=== PATIENT | male | born 1965 | race Caucasian/White ===

== ENCOUNTER 2019-05-17 20:31 | Emergency (ER) | payer BC, SELFPAY ==
[2019-05-17 20:42] VITALS: BP 137/83; PULSE 69; RESP 18; TEMP 36.1; O2SAT 95
--- NOTE | 2019-05-17 20:50 | W.ED.GENAD ---
Discharge Plan Disposition Patient Disposition: HOME Condition: Good Discharge Details Chief Complaint: EyeProblem Clinical Impression: Conjunctivitis Primary Care Provider: Unknown,Unknown ED Provider: Chandu [facility] Discharge Instructions Instructions: Conjunctivitis (ED) Additional Instructions: You have mild conjunctivitis of your right eye. It is most likely secondary to the foreign bodies that you got in your eye while weed whacking. Currently there is no evidence of foreign body, we will give you an anti-bacterial ointment. Please apply this 3 times daily. Please follow-up closely with your eye doctor for reassessment. If you notice any worsening of your symptoms, or any new symptoms such as vomiting, diarrhea, fever, chills, shortness of breath, chest pain, numbness, weakness, or fainting , please return immediately to the emergency department for reevaluation. Please follow up with your primary care provider as soon as possible for reassessment and reevaluation. As always, it was a pleasure participating in your medical care today. Medical Decision Making This is a pleasant 54-year-old male who presents for irritation and discharge coming from his right eye. He is not a diabetic, he is not a contact lens wear. He was weed whacking yesterday when he felt that he got something in his eye. Exam demonstrates mild conjunctivitis in the right eye. Fluorescein stain demonstrates no significant uptake or evidence of severe abrasion. Eversion of the upper and lower lid revealed no evidence of foreign body. Signs and symptoms appear consistent with a bacterial conjunctivitis. He does have some mildly purulent discharge noted on exam. No other evidence of infection of the globe, or pre-or post septal cellulitis. 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 We discussed red flags which to return. I have extensively reviewed the treatment plan and discharge instructions with the patient and their family. I have addressed all patient concerns at this time. The patient and family was made aware of what symptoms to monitor for that would warrant a return to the emergency department. Discussed the plan with the patient and family, they demonstrate verbal understanding and agreement with our assessment and plan at this time. HPI General Date/Time Provider Initiated Documentation: 05/17/19 20:36. HPI Narrative: This is a 54-year-old male with no significant past medical history who is not a contact lens wearer who presents today for pain in his right eye. Patient states that yesterday he was weed whacking some trees with his weed [place] and he felt something in his eye. He has had no pain since then, no sensation of foreign body, however he has noticed a slightly purulent discharge in his right eye since then. He denies any other changes in vision. He denies headache or other complaints. 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 He has had no recent surgeries, no IV or illicit drug use or pertinent family history General Stated Complaint: EyeProblem SHANAE: 3 Review of Systems Review of Systems All systems reviewed & are unremarkable except as noted in HPI and below PFSH Social History Do you feel safe at home: Yes Do you feel safe in your relationship?: Yes Exam Narrative Exam Narrative: 1.Const: Well-nourished, Well-developed, appearing stated age 2.Eyes: PERRL, mild conjunctival injection in the right eyeEye: EOMI, PERRL, Peripheral vision intact. No nystagmus. No external signs of preseptal cellulitis, no redness around the eye, no proptosis. No hyphema, no signs of trauma around the eye, no periorbital emphysema. Fluorescein exam is negative for corneal abrasion, negative Sirisha sign. Visual acuity as documented in chart. 3.ENT: Atraumatic external nose and ears. Moist MM. Neck: Symmetric, trachea midline, No thyromegaly. 4.CVS: +S1/S2, No murmurs or gallops. Peripheral pulses 2+ and equal in all extremities. Brisk capillary refill in all extremities. 5.RESP: Unlabored respiratory effort. Clear to auscultation bilaterally. No wheezes rales or rhonchi 6.GI: Soft, Nontender/Nondistended, No hepatosplenomegaly. No guarding or rebound. 7.MSK: Normocephalic/Atraumatic, Extremities w/o deformity or ttp No cyanosis or clubbing, Normal movement of all extremities 8.Skin: Warm, Dry. No rashes or lesions. 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 Sensation grossly intact, no focal neurologic deficits. 10.Psych: (AAO) x3. Appropriate mood and affect Course Vital Signs Temperature 36.1 C L 05/17/19 20:42 Pulse 69 05/17/19 20:42 Respiratory Rate 18 05/17/19 20:42 Blood Pressure 137/83 05/17/19 20:42 Pulse Oximetry 95 05/17/19 20:42 Temperature 36.1 C L 05/17/19 20:42 Temperature Source Tympanic 05/17/19 20:42 Pulse 69 05/17/19 20:42 Respiratory Rate 18 05/17/19 20:42 Blood Pressure 137/83 05/17/19 20:42 Pulse Oximetry 95 05/17/19 20:42 Oxygen Delivery Method Room Air 05/17/19 20:42 Oxygen Flow Rate 0 05/17/19 20:42 Pain Level 1 05/17/19 20:42
[2019-05-17 21:00] VITALS: BP 137/83; PULSE 69; RESP 18; O2SAT 95
== END 2019-05-17 21:00 | disposition home or self-care (01) ==
PROVIDERS: Emergency Provider Student in an Organized Health Care Education/Training Program
DX: H10.31 Unspecified acute conjunctivitis, right eye (principal)
CPT/HCPCS: 99283

== ENCOUNTER 2024-11-24 21:24 | Emergency (ER) | payer BC, SELFPAY ==
[2024-11-24 21:24] VITALS: BP 154/83; PULSE 71; RESP 16; O2SAT 96
--- NOTE | 2024-11-24 21:30 | DI.RAD_ITS ---
Exam(s) XR HAND LT COMPLETE EXAM: XR HAND LT COMPLETE CLINICAL HISTORY: Middle finger puncture. TECHNIQUE: 2D digital imaging was performed. COMPARISON: No exams were available for comparison FINDINGS: 3 views No evidence of acute fracture or dislocation nor radiopaque foreign body. Bone density is normal. N o osseous lesions nor erosions and no radiographic evidence of osteomyelitis, given the history here. Incidentally noted is a triangular corticated bone fragment at the level the ulnar styloid which is m ost probably related to remote fracture. There is no significant ulnar variance. IMPRESSION: No acute fractures. No radiopaque foreign bodies. No evidence of osteomyelitis. DATA REPOSITORY: RADIATION DOSE DELIVERED:
--- NOTE | 2024-11-24 21:34 | ED.GENADUL_ITS ---
Discharge Plan Disposition Patient Disposition: Home Condition: Stable Discharge Details Clinical Impression: Cellulitis of left hand Primary Care Provider: Unknown,Unknown ED Provider: Katie Weiner Home Meds and New Rx's Prescriptions: New cephalexin 500 mg tablet 500 mg PO BID 10 Days Qty: 20 0RF No Action tamsulosin [Flomax] 0.4 mg capsule 0.4 mg PO DAILY Discharge Instructions Instructions: Cellulitis (Skin Infection), Adult ED Additional Instructions: Please take the antibiotic with yogurt or probiotic twice daily for the next 10 days. You were given a first dose here in the ER and 2 tablets to go. A prescription was sent to the pharmacy on file for the remainder. Please return to the ER if you have any red streaks or increasing redness past your wrist and swelling after 3 to 5 days of the antibiotics. Return sooner if you have any fever chills or feeling sicker at any time. You should start getting better after the next 2-3 days. Keep area clean and dry and elevated when sitting or lying down. Please take Tylenol or Ibuprofen with food every 4-6 hours as needed for pain and swelling. Follow up with primary care provider in 3-5 days. Return to ED sooner if any worsening or concerns. Thank you for allowing us to care for you today Stand Alone Forms: Work Release Referrals: Primary Care Provider [Outside] - 5 days HPI General Mode of arrival: ambulatory . Date/Time Provider Initiated Documentation: 11/24/24 21:28 . Limitations to Documentation: no limitations . Information obtained by: patient, RN notes reviewed and old records reviewed . HPI Narrative: 59-year-old male presents to the ER with a chief complaint of left middle finger bump which he noticed 3 days ago now with increased surrounding erythema and induration to the dorsum of his left hand. He denies any fever or chills denies any problems with range of motion to his wrist or his fingers. Unknown last tetanus. 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 Unknown if foreign body. Denies denies any diabetes or any other significant past medical history. No other associated symptoms or concerns. Related Data Home Medications ?Medication ?Instructions ?Recorded ?Confirmed cephalexin 500 mg tablet 500 mg PO BID 10 days #20 tabs 11/24/24 tamsulosin 0.4 mg capsule (Flomax) 0.4 mg PO DAILY 11/24/24 11/24/24 Previous Rx's ?Medication ?Instructions ?Recorded cephalexin 500 mg tablet 500 mg PO BID 10 days #20 tabs 11/24/24 Allergies Allergy/AdvReac Type Severity Reaction Status Date / Time No Known Allergies Allergy Unverified 11/24/24 21:28 General Stated Complaint: Cellulitis SHANAE: 3 Review of Systems Integumentary/Breasts Skin/Breast: Reports as per HPI, Reports erythema, Reports skin pain, Reports skin swelling and Reports wounds Exam Extrem Left upper extremity: hand Details: abnormal to inspection Details: joint swelling, normal ROM of fingers, warmth, swelling and puncture wound Hand/finger images: 2 1. Small puncture wound 2. Erythema and swelling Course Vital Signs Vital signs: Vital Signs Pulse 71 11/24/24 21:24 Respiratory Rate 16 11/24/24 21:24 Blood Pressure 154/83 H 11/24/24 21:24 Pulse Oximetry 96 11/24/24 21:24 Pulse 71 11/24/24 21:24 Respiratory Rate 16 11/24/24 21:24 Blood Pressure 154/83 H 11/24/24 21:24 Blood Pressure Position Sitting 11/24/24 21:24 Pulse Oximetry 96 11/24/24 21:24 Oxygen Delivery Method Room Air 11/24/24 21:24 Oxygen Flow Rate 0 11/24/24 21:24 Pain Level 3 11/24/24 21:24 Medical Decision Making 59-year-old male presents to the ER with a chief complaint of left middle finger bump which he noticed 3 days ago now with increased surrounding erythema and induration to the dorsum of his left hand. He denies any fever or chills denies any problems with range of motion to his wrist or his fingers. Unknown last tetanus. 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 Unknown if foreign body. Denies denies any diabetes or any other significant past medical history. No other associated symptoms or concerns. X-ray ordered to rule out gas or foreign body, cephalexin 500 mg p.o. , TDAP booster, and wound care. X-ray reviewed by myself and V rad, no visualized foreign body or bony abnormality noted. Given 2 tablets of cephalexin 5 mg p.o. to go. Will aidee the redness and discuss strict return instructions to return if any worsening spreading red streaks after 3 to 5 days of the antibiotic. Will give cephalexin twice daily x 10 days. This text was generated using schoox dictation system, please disregard any oddities of phrase or misspellings. Quality:SDOH Health Related Social Needs: 2 No Data to Display PFSH All Active Problems (Updated 11/24/24 @ 22:16 by Katie Weiner NP) Cellulitis of left hand (Acute) Social History Smoking/Tobacco Use Status: Never Smoking risk assessment performed?: Yes Alcohol Intake: never Drug use: Never Substance use type: does not use Do you feel safe at home: Yes Do you feel safe in your relationship?: Yes
[2024-11-24] MEDS: Cephalexin 500 MG CAP PO (21:41)
[2024-11-24] MEDS: Diph,Pertuss(Acell),Tet Vac/Pf 0.5 ML SYR IM (21:41)
[2024-11-24 22:28] VITALS: BP 154/83; PULSE 71; RESP 16; TEMP 36.8; O2SAT 96
[2024-11-24] MEDS: Cephalexin 500 MG CAP, 2 CAPS/BTL PO (22:35)
[2024-11-24 22:37] VITALS: BP 154/83; PULSE 71; RESP 16; TEMP 36.8; O2SAT 96
--- NOTE | 2024-11-24 22:53 | DI.VRAD_ITS ---
PROCEDURE INFORMATION: Exam: XR Left Hand Exam date and time: 11/24/2024 9:55 PM Age: 59 years old Clinical indication: Other: Middle finger puncture TECHNIQUE: Imaging protocol: Radiologic exam of the left hand. Views: 3 or more views. COMPARISON: No relevant prior studies available. FINDINGS: Bones/joints: There is an old well corticated fracture through the base of the ulnar styloid process. No acute fracture or dislocation is seen. Soft tissues: No radiopaque foreign body is demonstrated. No gross soft tissue abnormality is seen. IMPRESSION: Three views of the left hand reveal no acute fracture or dislocation. No radiopaque foreign body is seen. Dictated and Authenticated by: Lester Borges MD. Ordering:YESSY Wilson MD
== END 2024-11-24 22:37 | disposition home or self-care (01) ==
LOC: ER 22:35
PROVIDERS: Emergency Provider Registered Nurse Emergency
DX: L03.114 Cellulitis of left upper limb (principal); Z23 Encounter for immunization
CPT/HCPCS: 90471; 90715; 99284; 73130; 99283